=== PATIENT | female | born 1970 | race American Indian/Alaskan Native ===

== ENCOUNTER 2018-06-04 20:22 | Emergency (ER) | payer SELFPAY ==
[2018-06-04 20:30] VITALS: BP 101/60
[2018-06-04 21:00] LABS: Basophils # (Auto) 0.1 K/mm3 (0.0-0.1); Basophils % (Auto) 0.9 % (0.0-1.8); Eosinophils # (Auto) 0.2 K/mm3 (0.0-0.4); Eosinophils % (Auto) 3.1 % (0.0-4.3); Hematocrit 37.6 % (30.3-42.9); Hemoglobin 11.9 gm/dl (10.1-14.3); Lymphocytes # (Auto) 1.1 K/mm3 (1.2-5.4); Lymphocytes % (Auto) 14.6 % (13.4-35.0); Mean Corpuscular HGB Conc 32 % (30-34); Mean Corpuscular Volume 76 fl (79-97); Monocytes # (Auto) 0.6 K/mm3 (0.0-0.8); Platelet Count 244 K/mm3 (140-440); Red Blood Count 4.93 M/mm3 (3.65-5.03); Red Cell Distribution Width 15.8 % (13.2-15.2)
[2018-06-04] MEDS ORDERED: NACL 0.9% 1000 ML 1,000 ML IV ONE (21:28)
[2018-06-04] MEDS ORDERED: MORPHINE IV ONE (21:28)
[2018-06-04 21:30] LABS: Alanine Aminotransferase 11 units/L (7-56); Albumin 4.3 g/dL (3.9-5); BUN/Creatinine Ratio 14; Blood Urea Nitrogen 7 mg/dL (7-17); Calcium 8.7 mg/dL (8.4-10.2); Hemolysis Index 10
[2018-06-04] MEDS ORDERED: PHENERGAN PO ONE (21:30)
--- NOTE | 2018-06-04 21:33 | Emergency Department Report ---
Blank Doc - Documentation Documentation: This is a 47-year-old patient here reports that she has a flareup of her Crohn's disease with abdominal pain, nausea vomiting and diarrhea. She denies any urinary burning or frequency. Denies any urgency. Denies any back pain or any . Patient reports that she has had 2 surgical procedures in the past for partial removal of her colon due to Crohn's. She says she has been okay for a while but now she is having a flareup and she does not have doctor. She is not taking any medication for Crohn's. Denies any shortness of breath or chest pain. Pain is 10 out of 10 and burning to abdomen. Pain is generalized. PE: Abdomen: Palpated to abdomen with no guarding, rebound. Normal bowel sounds in all quadrants and no CVA tenderness Assessment/plan Abdominal pain-IV fluid normal saline, Phenergan by mouth because patient is allergic to Zofran, morphine [address] scan of abdomen and pelvis with IV contrast. CBC and CMP ordered and urinalysis and urine is pending. History of Crohn's disease transferred to main ED room #3 and this is in progress.
--- NOTE | 2018-06-04 21:42 | Emergency Department Report ---
ED Abdominal Pain HPI - General Chief Complaint: Abdominal Pain Stated Complaint: CHRONS FLARE UP Time Seen by Provider: 06/04/18 21:25 Source: patient Mode of arrival: Wheelchair Limitations: No Limitations - History of Present Illness Initial Comments: Patient is 47 years old female with history of chronic disease. Patient presented to the ER complaining of diffuse abdominal pain for the last 2-3 days associated with nausea, vomiting and diarrhea. Patient stated that she is not taking any medicine for her Crohn's disease because he does not have a doctor that she follow-up with. Patient denied any fever, hematemesis, hematochezia or melena. MD Complaint: abdominal pain -: days(s) Location: diffuse Radiation: none Migration to: no migration Severity: moderate Severity scale (0 -10): 5 Quality: cramping, sharp Consistency: intermittent - Related Data Home Medications Medication Instructions Recorded Confirmed Last Taken No Known Home Medications [No 03/18/16 03/18/16 Unknown Reported Home Medications] Allergies Allergy/AdvReac Type Severity Reaction Status Date / Time ondansetron HCl Allergy Hives Verified 04/19/15 11:08 [From Zofran (as hydrochloride)] ED Review of Systems ROS: Stated complaint: CHRONS FLARE UP Other details as noted in HPI Comment: All other systems reviewed and negative Constitutional: denies: chills, fever Respiratory: denies: cough, orthopnea, shortness of breath, SOB with exertion, SOB at rest, wheezing Cardiovascular: denies: chest pain, palpitations, dyspnea on exertion Gastrointestinal: abdominal pain, nausea, vomiting, diarrhea. denies: constipation, hematemesis, melena, hematochezia Musculoskeletal: denies: back pain Neurological: denies: headache, weakness, numbness, paresthesias, confusion ED Past Medical Hx - Past Medical History Previous Medical History?: Yes Additional medical history: crohns - Surgical History Past Surgical History?: Yes Additional Surgical History: Surgery for Crohn's in 1994. Bowel obstruction surgery in 2014. - Social History Smoking Status: Current Some Day Smoker Substance Use Type: None - Medications Home Medications: Home Medications Medication Instructions Recorded Confirmed Last Taken Type No Known Home Medications [No 03/18/16 03/18/16 Unknown History Reported Home Medications] ED Physical Exam - General Limitations: No Limitations General appearance: alert, in no apparent distress - Head Head exam: Present: atraumatic, normocephalic, normal inspection - Eye Eye exam: Present: normal appearance - ENT ENT exam: Present: normal exam, normal orophraynx, mucous membranes moist - Neck Neck exam: Present: normal inspection, full ROM. Absent: tenderness, meningismus, lymphadenopathy, thyromegaly - Respiratory Respiratory exam: Present: normal lung sounds bilaterally. Absent: respiratory distress, wheezes, rales, rhonchi, stridor, chest wall tenderness, accessory muscle use, decreased breath sounds, prolonged expiratory - Cardiovascular Cardiovascular Exam: Present: regular rate, normal rhythm, normal heart sounds - GI/Abdominal GI/Abdominal exam: Present: soft, tenderness, normal bowel sounds. Absent: distended, guarding, rebound, rigid, organomegaly, mass, bruit, pulsatile mass, hernia - Extremities Exam Extremities exam: Present: normal inspection, full ROM, normal capillary refill. Absent: tenderness, pedal edema, joint swelling, calf tenderness - Back Exam Back exam: Present: normal inspection, full ROM. Absent: tenderness, CVA tenderness (R), CVA tenderness (L), muscle spasm, paraspinal tenderness, vertebral tenderness, rash noted - Neurological Exam Neurological exam: Present: alert, oriented X3, CN II-XII intact, normal gait, reflexes normal - Skin Skin exam: Present: warm, intact, normal color ED Course Vital Signs 06/04/18 20:29 Temperature 97.8 F Pulse Rate 70 Respiratory 16 Rate Blood Pressure 101/60 O2 Sat by Pulse 98 Oximetry ED Medical Decision Making - Lab Data Result diagrams: 06/04/18 20:46 06/04/18 20:46 - Radiology Data Radiology results: report reviewed CT abdomen and pelvis is unremarkable. No acute finding. - Medical Decision Making Patient is 47 years old female with history of chronic disease. Patient presented to the ER complaining of diffuse abdominal pain for the last 2-3 days associated with nausea, vomiting and diarrhea. Patient stated that she is not taking any medicine for her Crohn's disease because he does not have a doctor that she follow-up with. Patient denied any fever, hematemesis, hematochezia or melena. Patient stated that she is feeling much better. Labs reviewed show a bladder infection I will treat with ciprofloxacin. CT abdomen and pelvis is negative for acute finding. I advised the patient to follow-up with [place] [facility]-and to return to the emergency room if her symptoms are not improved. Critical care attestation.: If time is entered above; I have spent that time in minutes in the direct care of this critically ill patient, excluding procedure time. ED Disposition Clinical Impression: Abdominal pain, UTI (urinary tract infection), Crohns disease Disposition: TO HOME OR SELFCARE Is pt being admited?: No Condition: Stable Instructions: Abdominal Pain (ED), Urinary Tract Infection in Women (ED) Referrals: [facility] [Provider Group] - 3-5 Days [facility] [Provider Group] - 3-5 Days
[2018-06-04 23:05] LABS: Bilirubin,Urine NEG (Negative); Blood,Urine LG (Negative); Color,Urine Yellow (Yellow); Mucus,Urine 1+ /HPF; Protein,Urine <15 mg/dL mg/dL (Negative); Urobilinogen,Urine < 2.0 mg/dL (<2.0)
[2018-06-04 23:06] LABS: HCG Qualitative,Urine Negative (Negative); RBC,Urine > 182.0 /HPF (0.0-6.0)
--- NOTE | 2018-06-05 00:04 | Cat Scan Report ---
FINAL REPORT PROCEDURE: CT ABDOMEN PELVIS W CON TECHNIQUE: Computerized axial tomography of the abdomen and pelvis was performed after the IV inject ion of iodinated nonionic contrast. HISTORY: abominal pain NVD COMPARISON: No prior studies are available for comparison. FINDINGS: Visualized lower thorax: No significant abnormality. Liver: Normal size and attenuation. Spleen: Normal size and attenuation. Gallbladder and biliary system: Normal. Pancreas: Normal. Adrenals: Normal. Kidneys: Normal. GI tract: The stomach is normal. Small bowel has a normal caliber obstruction has been surgery in the right lower quadrant in the abdomen. No obstruction is seen. The colon has a normal appearance. The appendix is not visualized on this study.. Lymph nodes and mesentery: Normal. Vasculature: Normal. Bladder: Normal. Reproductive organs: The uterus is enlarged. Fibroid formation in the fundus is suspected. No adnexal masses are noted.. Peritoneum: Very slight fluid in the lower pelvis.. Musculoskeletal structures: No significant abnormality. Other: None. IMPRESSION: There is no evidence of intestinal or urinary tract obstruction. No ileus or enteritis. There has bee n previous surgery in the right lower quadrant of the abdomen. The appendix is not visualized on this study. The uterus is enlarged, there are suspected fibroids in the fundus of the uterus. Minimal fluid is no donnie in the lower pelvis.
== END 2018-06-05 00:30 | disposition home or self-care (01) ==
LOC: ED 20:22
DX: N39.0 Urinary tract infection, site not specified (principal); K50.90 Crohn's disease, unspecified, without complications; F17.200 Nicotine dependence, unspecified, uncomplicated; Z88.6 Allergy status to analgesic agent
CPT/HCPCS: 36415; 74177; 80053; 81001; 81025; 83690; 85025; 96361; 96374; 99284; J2270; J7030; Q9967; Q0169